=== PATIENT | female | born 1975 | race Hispanic/Latino ===

== ENCOUNTER → 2017-10-29 | Outpatient (CLI) | payer OTHER ==
--- NOTE | 2017-10-29 10:21 | Diagnostic Imaging Report ---
PROCEDURE:PELVIC ULTRASOUND COMPARISON:None. INDICATIONS:PELVIC AND PERINEAL PAIN TECHNIQUE: Poole scale color Doppler ultrasound pelvis FINDINGS: Retroflexed uterus measuring 9 x 3.6 x 4.9 cm. Endometrial thickness 0.5 cm. Right ovary: 2.2 x 1.4 x 2.5 cm. Normal. Left ovary: 2.3 x 1.5 x 2.4 cm. Normal. No free fluid. CONCLUSION: Normal pelvic ultrasound. Dictated by: Brandon Rodriguez M.D. on 10/29/2017 at 10:21 Electronically approved by: Brandon Rodriguez M.D. on 10/29/2017 at 10:21
== END ==
LOC: US 09:20
PROVIDERS: ATTEND Internal Medicine
DX: R10.2 Pelvic and perineal pain (principal)
CPT/HCPCS: 76856

== ENCOUNTER 2018-03-09 16:41 | Emergency (ER) | payer OTHER ==
[~2018-03-09] VITALS: Ht 160 cm; Wt 74.8 kg
[2018-03-09 18:23] VITALS: BP 124/71
== END 2018-03-09 18:25 | disposition home or self-care (01) ==
LOC: ER 16:41
DX: S02.5XXA Fracture of tooth (traumatic), initial encounter for closed fracture (principal); K04.7 Periapical abscess without sinus
CPT/HCPCS: 99282

== ENCOUNTER → 2018-08-05 | Outpatient (CLI) | payer OTHER ==
--- NOTE | 2018-08-06 16:24 | Diagnostic Imaging Report ---
#[id number] - MGSCRBIL #BILATERAL DIGITAL SCREENING MAMMOGRAM WITH CAD: 08/05/2018 CLINICAL: Routine screening. Comparison is made to exams dated: 07/27/2017 mammogram - [facility] and 01/31/2015 mammogram - [facility]. Current study contains 4 films. The tissue of both breasts is heterogeneously dense. This may lower the sensitivity of mammography. Current study was also evaluated with a Computer Aided Detection (CAD) system. There is a benign calcification in the left breast. No significant masses, calcifications, or other findings are seen in either breast. There has been no significant interval change. IMPRESSION: BENIGN There is no mammographic evidence of malignancy. A 1 year screening mammogram is recommended. The patient will be notified by letter of the results. Mason kim/[email or web address]:08/06/2018 12:48:52 [facility] Radar Operator/Navigator: Jesusita ALSTON(Al)(Marisol), [facility] letter sent: Compared to Prior B9 Mammogram BI-RADS: 2 Benign
== END ==
LOC: MAMMO 09:00
PROVIDERS: ATTEND Internal Medicine
DX: Z12.31 Encounter for screening mammogram for malignant neoplasm of breast (principal)
CPT/HCPCS: 77067

== ENCOUNTER 2018-12-13 08:13 | Emergency (ER) | payer OTHER ==
[~2018-12-13] VITALS: Ht 160 cm; Wt 76.2 kg
[2018-12-13] MEDS ORDERED: KETOROLAC TROMETHAMINE 60 MG/2 ML VIAL IM ONE (08:45)
[2018-12-13 09:40] VITALS: BP 113/76
== END 2018-12-13 09:48 | disposition home or self-care (01) ==
LOC: ER 08:13
DX: G43.909 Migraine, unspecified, not intractable, without status migrainosus (principal); E78.5 Hyperlipidemia, unspecified; Z88.1 Allergy status to other antibiotic agents; Z88.0 Allergy status to penicillin; Z88.2 Allergy status to sulfonamides
CPT/HCPCS: 81025; 99283; J1885

== ENCOUNTER → 2019-07-04 | Outpatient (CLI) | payer OTHER | LOC: MAMMO 08:45 | PROVIDERS: ATTEND Internal Medicine | DX: Z12.31 Encounter for screening mammogram for malignant neoplasm of breast (principal) | CPT/HCPCS: 77067 ==

== ENCOUNTER → 2019-09-28 | Outpatient (CLI) | payer OTHER ==
--- NOTE | 2019-09-28 09:50 | Diagnostic Imaging Report ---
Exam: Left ankle 3 views Clinical History: Left ankle sprain Findings: There is no evidence of acute fracture or malalignment. The articular joints are well-preserved. The soft tissue is unremarkable. Impression: No radiographic evidence of acute osseous injury. Signed by: Dr. Sai Shine MD on 09/28/2019 9:47 AM
--- NOTE | 2019-09-28 10:18 | Diagnostic Imaging Report ---
Exam: Lumbar spine series Clinical history: Radiculopathy Findings: There is no evidence of acute fracture or malalignment. Narrowing of the L5-S1 disc space is noted with mild endplate sclerosis. The soft tissue is unremarkable. Impression: 1. No radiographic evidence of acute osseous injury. Degenerative changes at L5-S1 as noted. Signed by: Dr. Sai Shine MD on 09/28/2019 10:15 AM
--- NOTE | 2019-09-28 10:32 | Diagnostic Imaging Report ---
Exam: Sacral coccygeal series Clinical history: Radiculopathy Findings: The L5 pars interarticularis appears disrupted, this may represent spondylolysis. If indicated, oblique views or CT is recommended for further assessment. Narrowing of the L5-S1 disc space is also noted with small anterior marginal osteophytes. The soft tissue is unremarkable. Impression: 1. Possible L5 spondylolysis. If indicated, oblique views or CT can be performed for further assessment. Signed by: Dr. Sai Shine MD on 09/28/2019 10:30 AM
== END ==
LOC: RAD 08:17
PROVIDERS: ATTEND Internal Medicine
DX: M47.816 Spondylosis without myelopathy or radiculopathy, lumbar region (principal)
CPT/HCPCS: 72110; 72220

== ENCOUNTER → 2020-03-01 | Outpatient (CLI) | payer OTHER ==
--- NOTE | 2020-03-01 10:32 | Diagnostic Imaging Report ---
EXAM: US RENAL RETROPERITONEAL COMP DATE: 03/01/2020 10:05 AM INDICATION: Calculus of kidney COMPARISON: 09/16/2019 FINDINGS: The right kidney is normal in size measuring 13.2 x 5.6 x 5.6 cm with cortical thickness of 1.6 cm. Cortical echogenicity is within normal limits. There is no evidence for solid renal mass, hydronephrosis, or shadowing calculi. The left kidney is normal in size measuring 12.8 x 5.6 x 4.0 cm with cortical thickness of 1.6 cm. Cortical echogenicity is within normal limits. There is a 3 mm echogenic foci identified within the left mid kidney which likely represents a nonobstructing stone. There is no evidence for solid renal mass or hydronephrosis. The urinary bladder is unremarkable. Bilateral ureteral jets are noted. Prevoid volume is 142 cc. IMPRESSION: 3 mm echogenic focus identified within the mid left kidney which may represent a nonobstructing stone. Otherwise, unremarkable renal ultrasound examination. Signed by: Dr. Lorenzo Negrete MD on 03/01/2020 10:29 AM
== END ==
LOC: US 09:34
PROVIDERS: ATTEND Internal Medicine
DX: N20.0 Calculus of kidney (principal)
CPT/HCPCS: 76770

== ENCOUNTER → 2020-07-19 | Outpatient (CLI) | payer OTHER | LOC: MAMMO 08:53 | PROVIDERS: ATTEND Internal Medicine | DX: Z12.31 Encounter for screening mammogram for malignant neoplasm of breast (principal) | CPT/HCPCS: 77067 ==

== ENCOUNTER 2020-09-23 13:23 | Emergency (ER) | payer OTHER ==
[~2020-09-23] VITALS: Ht 160 cm; Wt 77.1 kg
[2020-09-23 15:20] VITALS: BP 124/65
== END 2020-09-23 15:20 | disposition home or self-care (01) ==
LOC: ER 13:28
DX: U07.1 COVID-19 (principal); R05 Cough; E11.9 Type 2 diabetes mellitus without complications
CPT/HCPCS: 71045; 99283

== ENCOUNTER 2024-05-08 11:53 | Emergency (ER) | payer OTHER ==
[~2024-05-08] VITALS: Ht 160 cm; Wt 77.1 kg
[2024-05-08 11:55] VITALS: PULSE 97; RESP 19; TEMP 98.7; O2SAT 96
[2024-05-08] MEDS ORDERED: EPINEPHRINE HCL 1:1000 1ML 1 MG/ML AMP ONE (12:03)
[2024-05-08] MEDS ORDERED: METHYLPREDNISOLONE SOD SUCC 125 MG/2ML VIAL ONE (12:03)
[2024-05-08] MEDS ORDERED: SODIUM CHLORIDE 0.9% 1000ML 1,000 ML ONE (12:03)
[2024-05-08] MEDS ORDERED: DIPHENHYDRAMINE HCL INJ 50 MG/ML VIAL ONE (12:03)
[2024-05-08] MEDS ORDERED: FAMOTIDINE 20 MG/2 ML VIAL IV ONE (12:03)
[2024-05-08 12:10] LABS: BASOPHILS % 0.5 % (0.0-1.0); EOSINOPHILS # (AUTO) 0.1 (0.0-0.4); EOSINOPHILS % 0.9 % (0.0-6.0); HEMATOCRIT 41.5 % (34.2-44.1); HEMOGLOBIN 14.5 g/dL (12.0-16.0); LYMPHOCYTES # (AUTO) 3.1 (1.0-3.2); LYMPHOCYTES % 48.2 % (18.0-39.1); MEAN CORPUSCULAR HEMOGLOBIN 30.9 pg (28-32); MEAN CORPUSCULAR HGB CONC 34.9 g/dL (31-35); MEAN CORPUSCULAR VOLUME 88.3 fL (81-99); MONOCYTES # (AUTO) 0.3 (0.2-0.8); MONOCYTES % 4.4 % (4.4-11.3); NEUTROPHILS # (AUTO) 2.9 (2.1-6.9); NEUTROPHILS % 45.7 % (38.7-80.0); PLATELET COUNT 300 x10e3/uL (140-360); RED CELL DISTRIBUTION WIDTH 12.2 % (11.7-14.4); WHITE BLOOD COUNT 6.37 x10e3/uL (4.8-10.8)
[2024-05-08 12:41] LABS: CLARITY,URINE HAZY (CLEAR); COLOR,URINE YELLOW (YELLOW); LEUKOCYTE ESTERASE ,URINE NEGATIVE (NEGATIVE); NITRITE,URINE NEGATIVE (NEGATIVE); PH,URINE 7 (5 - 7)
[2024-05-08 12:42] LABS: BILIRUBIN,URINE NEGATIVE (NEGATIVE); GLUCOSE, URINE NEGATIVE (NEGATIVE); KETONES,URINE NEGATIVE (NEGATIVE); PROTEIN,URINE DIPSTICK NEGATIVE (NEGATIVE); URINE UROBILINOGEN 0.2 mg/dL (0.2 - 1)
[2024-05-08 12:44] LABS: BACTERIA,URINE FEW /HPF; EPITHELIAL CELLS,URINE FEW /LPF; WBC,URINE (MAN) 0-5 /HPF (0-5)
[2024-05-08 12:50] VITALS: BP 162/89
[2024-05-08] MEDS: FAMOTIDINE 20 MG/2 ML VIAL IV STA (12:50)
[2024-05-08] MEDS: METHYLPREDNISOLONE SOD SUCC 125 MG/2ML VIAL IV STA (12:50)
[2024-05-08] MEDS: SODIUM CHLORIDE 0.9% 1000ML 1,000 ML IV STA (12:50)
[2024-05-08] MEDS: EPINEPHRINE HCL 1:1000 1ML 1 MG/ML AMP INJ ONE (12:50)
[2024-05-08] MEDS: DIPHENHYDRAMINE HCL INJ 50 MG/ML VIAL IV ONE (12:51)
[2024-05-08 12:54] LABS: ALANINE AMINOTRANSFERASE 8 IU/L (0-55); ALBUMIN 4.2 g/dL (3.5-5.0); ALBUMIN/GLOBULIN RATIO 1.4 (0.8-2.0); ALKALINE PHOSPHATASE 83 IU/L (40-150); ANION GAP 17.2 mmol/L (8-16); BILIRUBIN,TOTAL 0.5 mg/dL (0.2-1.2); BLOOD UREA NITROGEN 10 mg/dL (7-26); BUN/CREATININE RATIO 12 (6-25); CALCIUM 9.9 mg/dL (8.4-10.2); CARBON DIOXIDE 20 mmol/L (22-29); CHLORIDE 106 mmol/L (98-107); CREATININE, SERUM 0.81 mg/dL (0.57-1.11); EST GLOMERULAR FILTRATION RATE 89 ML/MIN (>=60); GLUCOSE 146 mg/dL (74-118); POTASSIUM 3.2 mmol/L (3.5-5.1); SODIUM 140 mmol/L (136-145); TOTAL PROTEIN 7.3 g/dL (6.5-8.1)
[2024-05-08] MEDS ORDERED: PREDNISONE20 MG PO (14:04)
== END 2024-05-08 14:49 | disposition home or self-care (01) ==
LOC: ER 12:07
DX: R31.9 Hematuria, unspecified (principal); R21 Rash and other nonspecific skin eruption; T37.8X5A Adverse effect of other specified systemic anti-infectives and antiparasitics, initial encounter; E11.65 Type 2 diabetes mellitus with hyperglycemia; E78.5 Hyperlipidemia, unspecified
CPT/HCPCS: 36415; 80053; 81001; 84702; 85025; 87086; 99284; J0171; J1200; J2919; J7030

== ENCOUNTER → 2024-06-17 | Outpatient (REF) | payer OTHER ==
[~2024-06-17] MED LIST: PREDNISONE20 MG PO
== END ==
LOC: CT 07:22
PROVIDERS: ATTEND Internal Medicine
DX: N20.0 Calculus of kidney (principal)
CPT/HCPCS: 74176; 81025

== ENCOUNTER → 2024-07-18 | Outpatient (REF) | payer OTHER | LOC: US 09:19 | PROVIDERS: ATTEND Internal Medicine | DX: R10.2 Pelvic and perineal pain (principal) | CPT/HCPCS: 76830 ==

== ENCOUNTER → 2025-05-04 | Outpatient (REF) | payer OTHER | LOC: RAD 07:30 | PROVIDERS: ATTEND Internal Medicine | DX: S63.633A Sprain of interphalangeal joint of left middle finger, initial encounter (principal) ==